=== PATIENT | male | born 1960 | race Caucasian/White ===

== ENCOUNTER → 2017-07-24 | Outpatient (CLI) | payer BC | LOC: M WUC 13:41 | DX: S20.212A Contusion of left front wall of thorax, initial encounter (principal); S22.42XA Multiple fractures of ribs, left side, initial encounter for closed fracture; X58.XXXA Exposure to other specified factors, initial encounter; Y92.9 Unspecified place or not applicable; Y93.9 Activity, unspecified | CPT/HCPCS: 71101 ==

== ENCOUNTER 2017-11-06 12:07 | Day surgery (SDC) | payer BC ==
[2017-11-06] MEDS ORDERED: NS 1,000 ML IV (12:45)
[2017-11-06] MEDS ORDERED: PROPOFOL 200 MG/20 ML VIAL As Ordered ×2 (13:01→13:11)
== END 2017-11-06 13:55 | disposition home or self-care (01) ==
LOC: M OPP 12:07
DX: Z12.11 Encounter for screening for malignant neoplasm of colon (principal); Z86.010 Personal history of colon polyps; K62.1 Rectal polyp; D12.3 Benign neoplasm of transverse colon; K64.0 First degree hemorrhoids; K57.30 Diverticulosis of large intestine without perforation or abscess without bleeding; Z86.79 Personal history of other diseases of the circulatory system; R06.02 Shortness of breath; J44.9 Chronic obstructive pulmonary disease, unspecified; F17.210 Nicotine dependence, cigarettes, uncomplicated; Z79.899 Other long term (current) drug therapy; Z80.0 Family history of malignant neoplasm of digestive organs
CPT/HCPCS: 45385

== ENCOUNTER 2018-08-22 12:47 | Emergency (ER) | payer BC ==
[~2018-08-22] VITALS: Ht 177.8 cm; Wt 63.6 kg
[~2018-08-22 12:47] MED LIST: ATEN25TA; BABY81CH; FOLI1TAB; MULTIVIT; NICO21DI4; PROAAER10 INH; SYMB16INH INH; THIA100T
[2018-08-22 13:25] LABS: BASO # 0.1 10^3/uL (0.0-0.2); BASO % 1.1 % (0.0-1.0); EOS # 0.1 10^3/uL (0.0-0.50); EOS % 1.4 % (0.0-3.0); HEMATOCRIT 45.4 % (42.0-52.0); HEMOGLOBIN 15.3 g/dl (13.5-17.5); LYMPH % 13.4 % (24.0-44.0); MEAN CORPUSCULAR HEMOGLOBIN 33.3 pg (27.0-33.0); MEAN CORPUSCULAR HGB CONC 33.7 g/dl (32.0-36.5); MEAN CORPUSCULAR VOLUME 98.9 fl (80.0-96.0); MONO # 0.7 10^3/uL (0.0-0.8); MONO % 9.5 % (0.0-5.0); NEUTROPHILS # 5.5 10^3/uL (1.8-7.7); NEUTROPHILS % 74.1 % (36.0-66.0); PLATELET COUNT, AUTOMATED 248 10^3/uL (150-450); RED BLOOD COUNT 4.59 10^6/uL (4.30-6.10); WHITE BLOOD COUNT 7.4 10^3/uL (4.0-10.0)
[2018-08-22 13:38] LABS: INR 0.86; PROTHROMBIN TIME 11.8 SECONDS (12.1-14.4)
[2018-08-22 13:39] LABS: PARTIAL THROMBOPLASTIN TIME 32.3 SECONDS (25.4-37.6)
[2018-08-22 13:44] LABS: ALBUMIN 3.8 GM/DL (3.2-5.2); ALT/SGPT 39 U/L (12-78); BILIRUBIN,DIRECT 0.1 MG/DL (0.0-0.2); BILIRUBIN,TOTAL 0.3 MG/DL (0.2-1.0); BLOOD UREA NITROGEN 14 MG/DL (7-18); C REACTIVE PROTEIN QUANTITATIV < 0.30 MG/DL (0.00-0.30); CALCIUM LEVEL 8.9 MG/DL (8.5-10.1); CARBON DIOXIDE LEVEL 27 MEQ/L (21-32); CHLORIDE LEVEL 102 MEQ/L (98-107); CPK CREATINE PHOSPHOKINASE 130 U/L (39-308); GLOMERULAR FILTRATION RATE > 60.0 (>56); GLUCOSE, FASTING 118 MG/DL (70-100); MB/CK RELATIVE INDEX 1.77 (< OR =4); NT-PRO BNP 1681 PG/ML (<125); POTASSIUM SERUM 4.3 MEQ/L (3.5-5.1); SODIUM LEVEL 135 MEQ/L (136-145); TOTAL PROTEIN 7.6 GM/DL (6.4-8.2); TROPONIN I < 0.02 NG/ML (< 0.10)
[2018-08-22 13:45] LABS: ERYTHROCYTE SEDIMENTATION RATE 3 mm/hr (0-20)
--- NOTE | 2018-08-22 13:48 | REP ---
Clinical: Acute chest pain . Comparison: 08/10/2016 . Findings: The mediastinum and cardiac silhouette are stable and within normal limits for portable technique. The lung duran are clear without acute consolidation, effusion, or pneumothorax. Impression: No acute cardiopulmonary process appreciated. Electronically Signed by Missael Crespo MD 08/22/2018 01:40 P
[2018-08-22 15:54] VITALS: BP 113/79
--- NOTE | 2018-08-23 07:19 | ECGEPIP ---
Stationary ECG Study [facility] - ED Test Date: 2018-08-22 Pat Name: TEVIN SALINAS Department: Room: - Gender: M Housecleaner Floor: [place]ony : 1960 Requested By: TEVIN Rod Order Number: [id number] Reading MD: Deidre Velasco Measurements Intervals [place] Rate: 96 P: 78 ID: 128 QRS: 64 QRSD: 94 T: 79 QT: 346 QTc: 439 Interpretive Statements SINUS RHYTHM RIGHT VENTRICULAR CONDUCTION DELAY Electronically Signed On 08-23-2018 7:19:00 EST by Deidre Velasco
== END 2018-08-22 16:08 | disposition home or self-care (01) ==
LOC: M ED 12:47
DX: R00.2 Palpitations (principal); J44.9 Chronic obstructive pulmonary disease, unspecified; I48.91 Unspecified atrial fibrillation; Z79.82 Long term (current) use of aspirin; F17.210 Nicotine dependence, cigarettes, uncomplicated

== ENCOUNTER → 2018-11-27 | Outpatient (CLI) | payer BC ==
--- NOTE | 2018-11-29 07:49 | REP ---
Clinical: Lung screening. History nicotine dependence. Comparison: 05/25/2015 Technique: Axial low-dose noncontrast images from the thoracic inlet to the upper abdomen using lung screening technique. Findings: The lung duran are well-aerated. Very minimal chronic interstitial changes are identified primarily involving the lingula. No consolidation, significant nodule or mass lesion is appreciated. No pleural effusion/reaction or pneumothorax. Tracheobronchial tree is patent. Mediastinum demonstrates mild atherosclerotic changes of the coronary arteries without cardiomegaly. Impression: Lung-RADS category I. Suspected mild progressive chronic interstitial change/scarring in the lingula. Management recommendations include annual low-dose CT evaluation. Electronically Signed by Missael Crespo MD 11/29/2018 07:41 A
== END ==
LOC: M RAD 13:14
PROVIDERS: ATTEND Internal Medicine
DX: R91.8 Other nonspecific abnormal finding of lung field (principal); F17.210 Nicotine dependence, cigarettes, uncomplicated

== ENCOUNTER → 2020-04-01 | Outpatient (CLI) | payer BC ==
--- NOTE | 2020-04-23 13:47 | REP ---
LOW-DOSE LUNG SCREENING TECHNIQUE CLINICAL: High risk factors, nicotine dependence. TECHNIQUE: Axial noncontrast images from the thoracic inlet to the upper abdomen using low-dose lung screening technique. COMPARISON: 11/27/2018, 04/29/2013. FINDINGS: Mild biapical and lingular scarring is again noted and essentially unchanged. The lung duran are otherwise well-aerated and clear. No consolidation or suspicious nodule/mass lesion is appreciated. No effusion. Tracheobronchial tree is patent. IMPRESSION: * Mild relatively stable scarring at the bilateral apices and lingula. * Lung-RADS Category 1. Management and recommendations include annual low-dose CT evaluation. MTDD
== END ==
LOC: M RAD 14:00
PROVIDERS: ATTEND Internal Medicine
DX: Z12.2 Encounter for screening for malignant neoplasm of respiratory organs (principal); F17.210 Nicotine dependence, cigarettes, uncomplicated; J98.4 Other disorders of lung

== ENCOUNTER → 2021-04-01 | Outpatient (CLI) | payer BC ==
--- NOTE | 2021-04-01 15:50 | REP ---
INDICATION: LOW BACK PAIN. TECHNIQUE: Five views FINDINGS: Vertebral body height and alignment is within normal limits. There is mild posterior disc space narrowing at every level. Degenerative facet joint changes are seen at every level bilaterally. There is no evidence of spondylolysis or spondylolisthesis. The pedicles are intact bilaterally. IMPRESSION: Mild chronic changes <Electronically signed by Yury Farley > 04/01/21 [id number]
== END ==
LOC: M WUC 15:21
PROVIDERS: ATTEND Physician Assistant Medical
DX: M54.5 Low back pain (principal)

== ENCOUNTER → 2021-08-26 | Outpatient (CLI) | payer OTHER | LOC: M RAD 12:35 | PROVIDERS: ATTEND Internal Medicine | DX: J44.9 Chronic obstructive pulmonary disease, unspecified (principal); F17.210 Nicotine dependence, cigarettes, uncomplicated ==

== ENCOUNTER 2022-08-25 19:41 | Inpatient (IN) | payer OTHER ==
[~2022-08-25] VITALS: Ht 165.1 cm; Wt 46.2 kg
[2022-08-25 20:00] LABS: BASO # 0.1 10^3/uL (0.0-0.2); BASO % 1.6 % (0.0-1.0); EOS # 0.6 10^3/uL (0.0-0.5); EOS % 7.7 % (0.0-3.0); LYMPH # 2.2 10^3/uL (1.5-5.0); LYMPH % 29.5 % (24.0-44.0); MEAN CORPUSCULAR HEMOGLOBIN 33.7 pg (27.0-33.0); MEAN CORPUSCULAR HGB CONC 34.1 g/dl (32.0-36.5); MEAN CORPUSCULAR VOLUME 98.6 fl (80.0-96.0); MONO % 13.2 % (2.0-8.0); NEUTROPHILS # 3.5 10^3/uL (1.5-8.5); NEUTROPHILS % 47.6 % (36.0-66.0); PLATELET COUNT, AUTOMATED 264 10^3/uL (150-450); RED BLOOD COUNT 4.16 10^6/uL (4.30-6.10); WHITE BLOOD COUNT 7.3 10^3/uL (4.0-10.0)
[2022-08-25] MEDS: METOPROLOL 5 MG/5 ML VIAL IV SCH ×3 (20:18→20:41)
[2022-08-25 20:35] LABS: CK-MB VALUE MASS 1.1 NG/ML (<3.6)
[2022-08-25 20:36] LABS: ALBUMIN 3.6 G/DL (3.2-5.2); ALKALINE PHOSPHATASE 63 U/L (46-116); ALT/SGPT 17 U/L (7.0-40); AST/SGOT 29 U/L (<34); BILIRUBIN,DIRECT < 0.1 MG/DL (<0.4); BILIRUBIN,TOTAL 0.2 MG/DL (0.3-1.2); BLOOD UREA NITROGEN 10 MG/DL (9-23); CALCIUM LEVEL 8.4 MG/DL (8.3-10.6); CARBON DIOXIDE LEVEL 23 MMOL/L (20-31); CHLORIDE LEVEL 98 MMOL/L (98-107); CREATININE FOR GFR 0.94 MG/DL (0.70-1.30); GLOMERULAR FILTRATION RATE > 60.0 (>49); GLUCOSE, FASTING 72 MG/DL (74-106); MAGNESIUM LEVEL 2.1 MG/DL (1.8-2.4); PHOSPHORUS LEVEL 4.2 MG/DL (2.4-5.1); POTASSIUM SERUM 4.8 MMOL/L (3.5-5.1); SODIUM LEVEL 129 MMOL/L (136-145); TOTAL PROTEIN 6.3 G/DL (5.7-8.2)
[2022-08-25 20:38] LABS: MB/CK RELATIVE INDEX 0.86 (< OR =4)
[2022-08-25 20:40] LABS: CPK CREATINE PHOSPHOKINASE 131 U/L (46-171); FREE T4 1.16 NG/DL (0.89-1.76); MB/CK RELATIVE INDEX 0.76 (< OR =4); THYROID STIMULATING HORMONE 1.573 uIU/ML (0.55-4.78)
[2022-08-25] MEDS ORDERED: APIXABAN 5 MG TAB (ELIQUIS) PO ONE (21:10)
[2022-08-25] MEDS ORDERED: DIGOXIN INJ 0.5 MG/2 ML AMP IV ONE (21:10)
[2022-08-25 21:42] LABS: CK-MB VALUE MASS 1.2 NG/ML (<3.6)
[2022-08-25 21:43] LABS: MB/CK RELATIVE INDEX 1.05 (< OR =4)
[2022-08-25] MEDS ORDERED: methylPREDNISolone 40MG 1ML VIAL IV SCH (22:00)
[2022-08-25 22:17] LABS: INR 0.88; PROTHROMBIN TIME 12.1 SECONDS (12.5-14.5)
[2022-08-25 22:18] LABS: PARTIAL THROMBOPLASTIN TIME 32.6 SECONDS (24.8-34.2)
[2022-08-25] MEDS ORDERED: DIGOXIN 0.25 MG TAB PO STA (22:44)
[2022-08-25] MEDS ORDERED: atenoloL 50 MG TAB PO ONE (22:45)
[2022-08-25] MEDS ORDERED: THERTAB52 PO (23:34)
[2022-08-25] MEDS ORDERED: ALBU8.5H INH (23:34)
[2022-08-25] MEDS ORDERED: IPRA0.00 NEB (23:34)
[2022-08-25] MEDS ORDERED: SILD50TA2 PO (23:34)
[2022-08-25] MEDS ORDERED: GABA-282 PO (23:34)
[2022-08-25] MEDS ORDERED: ATEN25TA PO (23:34)
[2022-08-25] MEDS ORDERED: HOME MED LIST COMPLETE! XX SCH (23:35)
[2022-08-25] MEDS ORDERED: ALBUTEROL SULFATE 2.5MG/0.5ML INH NEB SOLN NEB PRN (23:40)
[2022-08-26] VITALS (22 sets, daily range): BP systolic 82–155; BP diastolic 50–80; O2SAT 90–97
[2022-08-26 00:16] LABS: RSV AMPLIFICATION NEGATIVE (NEGATIVE)
[2022-08-26] MEDS: IPRATROPIUM 0.5MG/ALBUTEROL 2.5MG INH SOL UD 3ML (DUONEB) NEB SCH ×7 (00:19→23:36)
[2022-08-26] MEDS ORDERED: UNRESOLVED CLARIFICATION ENTRY XX STA (00:31)
[2022-08-26] MEDS ORDERED: LORazepam 2 MG TAB PO PRN (01:25)
[2022-08-26] MEDS ORDERED: THIAMINE 200MG 2ML VIAL IM ONE (01:25)
[2022-08-26] MEDS ORDERED: diltiaZEM 125 MG in NS 100 ML IV SCH (04:00)
[2022-08-26] MEDS ORDERED: dilTIAZem HCL 125 MG in NS 100 ML IV SCH ×2 (04:00→11:30)
[2022-08-26] MEDS ORDERED: METOPROLOL SUCC *XL* 25MG TAB (TopROL *XL*) PO ONE (06:00)
[2022-08-26] MEDS ORDERED: DIGOXIN INJ 0.5 MG/2 ML AMP IV STA (06:31)
[2022-08-26] MEDS: TIOTROPIUM INHALER/CAPSULE (SPIRIVA) INH SCH (08:02)
[2022-08-26 09:00] LABS: HEMOGLOBIN A1c 4.8 % (4.0-6.0)
[2022-08-26] MEDS ORDERED: APIXABAN 5 MG TAB (ELIQUIS) PO SCH (09:00)
[2022-08-26] MEDS ORDERED: ASPIRIN 325 MG TAB PO SCH (09:00)
[2022-08-26] MEDS: MULTIVITAMINS/MINERALS THERAP 1 TAB PO SCH (09:28)
[2022-08-26] MEDS: FOLIC ACID 1MG TAB PO SCH (09:29)
[2022-08-26] MEDS: PANTOPRAZOLE 40MG TAB (PROTONIX) PO SCH (11:25)
[2022-08-26] MEDS ORDERED: NS 500 ML IV ONE (11:30)
[2022-08-26] MEDS ORDERED: NS 1,000 ML IV ONE (11:45)
[2022-08-26] MEDS: APIXABAN 5 MG TAB (ELIQUIS) PO SCH (20:31)
[2022-08-27] VITALS (7 sets, daily range): BP systolic 110–147; BP diastolic 57–79; O2SAT 92–94
[2022-08-27] MEDS: IPRATROPIUM 0.5MG/ALBUTEROL 2.5MG INH SOL UD 3ML (DUONEB) NEB SCH ×2 (03:28→07:38)
[2022-08-27] MEDS: TIOTROPIUM INHALER/CAPSULE (SPIRIVA) INH SCH (07:38)
[2022-08-27] MEDS: FOLIC ACID 1MG TAB PO SCH (08:04)
[2022-08-27] MEDS: APIXABAN 5 MG TAB (ELIQUIS) PO SCH (08:04)
[2022-08-27] MEDS: MULTIVITAMINS/MINERALS THERAP 1 TAB PO SCH (08:04)
[2022-08-27] MEDS: PANTOPRAZOLE 40MG TAB (PROTONIX) PO SCH (08:04)
[2022-08-27] MEDS ORDERED: DILT60TA PO (08:28)
[2022-08-27] MEDS ORDERED: ASPI-1 PO (08:28)
[2022-08-27] MEDS ORDERED: PANT40TA29 PO (08:28)
[2022-08-27] MEDS ORDERED: THIAMINE 100 MG TAB PO SCH (09:00)
== END 2022-08-27 11:23 | disposition home or self-care (01) | DRG 309 ==
LOC: M ED 19:41 → EDBD 19:41 → M ED INP 08-26 01:13 → M PCU 08-26 02:43
PROVIDERS: ADMIT Internal Medicine; ATTEND Internal Medicine
PROC: B246ZZZ Ultrasonography of Right and Left Heart (ICD-10-PCS; principal; 2022-08-26)
DX: I48.92 Unspecified atrial flutter (principal); E87.1 Hypo-osmolality and hyponatremia; J44.1 Chronic obstructive pulmonary disease with (acute) exacerbation; F17.210 Nicotine dependence, cigarettes, uncomplicated; F10.20 Alcohol dependence, uncomplicated; E16.2 Hypoglycemia, unspecified

== ENCOUNTER 2022-09-08 12:14 | Emergency (ER) | payer OTHER ==
[~2022-09-08 12:14] MED LIST changes: +ALBU8.5H INH; +ASPI-1 PO; +ATEN25TA PO; +DILT60TA PO; +GABA-282 PO; +IPRA0.00 NEB; +PANT40TA29 PO; +SILD50TA2 PO; +THERTAB52 PO
== END 2022-09-08 12:35 | disposition left against medical advice (07) ==
LOC: M ED 12:14
DX: Z53.21 Procedure and treatment not carried out due to patient leaving prior to being seen by health care provider (principal)

== ENCOUNTER → 2022-11-06 | Outpatient (CLI) | payer OTHER | LOC: M RAD 07:50 | PROVIDERS: ATTEND Internal Medicine | DX: Z12.2 Encounter for screening for malignant neoplasm of respiratory organs (principal); F17.200 Nicotine dependence, unspecified, uncomplicated ==

== ENCOUNTER → 2023-12-21 | Outpatient (CLI) | payer OTHER | LOC: M RAD 07:29 | PROVIDERS: ATTEND Internal Medicine | DX: Z12.2 Encounter for screening for malignant neoplasm of respiratory organs (principal); F17.210 Nicotine dependence, cigarettes, uncomplicated; R91.8 Other nonspecific abnormal finding of lung field ==

== ENCOUNTER → 2024-01-21 | Outpatient (CLI) | payer OTHER ==
[~2024-01-21] MED LIST changes: +ISOVUE-370 76% 100ML VIAL As Ordered ONE
== END ==
LOC: M RAD 09:27
PROVIDERS: ATTEND Internal Medicine
DX: J12.9 Viral pneumonia, unspecified (principal); J98.11 Atelectasis
CPT/HCPCS: 71260; Q9967

== ENCOUNTER 2024-04-24 16:05 | Emergency (ER) | payer OTHER ==
[~2024-04-24] VITALS: Ht 177.8 cm; Wt 65.9 kg
[~2024-04-24 16:05] MED LIST changes: +GABA-1172 PO; -GABA-282 PO; -ISOVUE-370 76% 100ML VIAL As Ordered ONE
[2024-04-24 16:07] VITALS: BP 163/86; TEMP 98.3; O2SAT 98
[2024-04-24] MEDS ORDERED: ELIQ5TAB (16:18)
[2024-04-24] MEDS ORDERED: METO50TA7 (16:18)
[2024-04-24] MEDS ORDERED: AMLO1TAB24 (16:18)
[2024-04-24] MEDS: BOOSTRIX VACCINE (TETANUS/DIPHTH/ACEL. PERTUSSIS) 0.5ML SYR IM ONE (17:22)
== END 2024-04-24 19:09 | disposition left against medical advice (07) ==
LOC: M ED 16:05
DX: S01.511A Laceration without foreign body of lip, initial encounter (principal); S82.832A Other fracture of upper and lower end of left fibula, initial encounter for closed fracture; Y92.019 Unspecified place in single-family (private) house as the place of occurrence of the external cause; Y93.9 Activity, unspecified; Y99.9 Unspecified external cause status; J44.9 Chronic obstructive pulmonary disease, unspecified; F32.A Depression, unspecified; F17.210 Nicotine dependence, cigarettes, uncomplicated; F10.10 Alcohol abuse, uncomplicated; Z79.51 Long term (current) use of inhaled steroids; Z79.01 Long term (current) use of anticoagulants; Z79.810 Long term (current) use of selective estrogen receptor modulators (SERMs); Z23 Encounter for immunization; Z79.899 Other long term (current) drug therapy; Z53.9 Procedure and treatment not carried out, unspecified reason

== ENCOUNTER → 2024-05-29 | Outpatient (CLI) | payer OTHER ==
[~2024-05-29] MED LIST changes: +AMLO1TAB24; +ELIQ5TAB; +METO50TA7
== END ==
LOC: M SOG 07:58
PROVIDERS: ATTEND Physician Assistant
DX: Z53.9 Procedure and treatment not carried out, unspecified reason (principal); S82.65XA Nondisplaced fracture of lateral malleolus of left fibula, initial encounter for closed fracture

== ENCOUNTER → 2024-06-04 | Outpatient (CLI) | payer OTHER | LOC: M SOG 07:57 | PROVIDERS: ATTEND Physician Assistant | DX: S82.65XD Nondisplaced fracture of lateral malleolus of left fibula, subsequent encounter for closed fracture with routine healing (principal) ==

== ENCOUNTER 2025-03-04 10:04 | Day surgery (SDC) | payer OTHER ==
[~2025-03-04] VITALS: Ht 177.8 cm; Wt 61.7 kg
[~2025-03-04 10:04] MED LIST changes: +LIDOCAINE 2% 100 MG/5 ML SDV (FOR ANES.) As Ordered ONE; +SILD100T PO; +SPIR12.9 INH
[2025-03-04] MEDS ORDERED: IPRATROPIUM 0.5 MG/ALBUTEROL 2.5 MG INH SOL UD 3 ML NEB ONE (11:05)
[2025-03-04 12:29] VITALS: TEMP 97.3
[2025-03-04 12:43] VITALS: BP 124/60; O2SAT 97
== END 2025-03-04 12:51 | disposition home or self-care (01) ==
LOC: M OPP 10:04
PROVIDERS: ATTEND Internal Medicine Gastroenterology
DX: K64.1 Second degree hemorrhoids (principal); K57.30 Diverticulosis of large intestine without perforation or abscess without bleeding; Z86.0100 Personal history of colon polyps, unspecified; I48.91 Unspecified atrial fibrillation; Z79.01 Long term (current) use of anticoagulants; Z79.899 Other long term (current) drug therapy; J44.9 Chronic obstructive pulmonary disease, unspecified; F17.210 Nicotine dependence, cigarettes, uncomplicated

== ENCOUNTER → 2025-03-13 | Outpatient (CLI) | payer OTHER ==
[~2025-03-13] MED LIST changes: +ISOVUE-370 76% 100 ML VIAL As Ordered ONE; -LIDOCAINE 2% 100 MG/5 ML SDV (FOR ANES.) As Ordered ONE
== END ==
LOC: M RAD 14:39
PROVIDERS: ATTEND Internal Medicine Critical Care Medicine
DX: J44.9 Chronic obstructive pulmonary disease, unspecified (principal); J84.10 Pulmonary fibrosis, unspecified; F17.218 Nicotine dependence, cigarettes, with other nicotine-induced disorders
CPT/HCPCS: 71271; Q9967